=== PATIENT | female | born 1995 | race African-American/Black ===

== ENCOUNTER 2019-02-03 05:50 | Inpatient (IN) ==
[2019-02-03] MEDS ORDERED: SODIUM CHLORIDE 0.9% 1,000 ML IV STA (06:11)
[2019-02-03 06:32] LABS: Basophils # 0.1 10*3/uL (0.0-0.2); Basophils % 0.2 % (0.0-0.8); Eosinophils % 0.1 % (0.00-10.9); Hematocrit 23.9 VOL% (35.7-47.0); Hemoglobin 7.2 GM/DL (12.0-16.0); Immature Granulocytes % 1.3 %; Lymphocytes # 2.5 10*3/uL (1.4-4.0); Lymphocytes % 11.1 % (21.3-54.2); Mean Corpuscular HGB Conc 30.1 GM/DL (32-36); Mean Corpuscular Volume 84.8 FL (87-102); Mean Platelet Volume 9.1 FL (9.6-12.0); Monocytes % 7.8 % (1.7-12.7); NRBC # 0.02 10*3/uL; Neutrophils % 79.5 % (38.7-73.9); Platelet Count 492 T/CUMM (130-400); Red Blood Count 2.82 MC/CUMM (3.8-5.5); Red Cell Distribution Width 17.4 % (9.3-17.3); White Blood Count 22.8 T/CUMM (4-12)
[2019-02-03 06:53] LABS: Albumin 2.3 G/DL (3.4-5.0); Bilirubin,Total 0.9 MG/DL (0.2-1.0); Calcium 8.3 MG/DL (8.5-10.1); Osmolality,Calculated 274.5 MOS/KG (273-304); Total Protein 7.4 G/DL (6.4-8.3)
[2019-02-03 06:57] LABS: Band Neutrophils 1 % (0-10); Hypochromasia 1+; Lymphocytes 14 % (20-55); Microcytosis Slight; Platelet Estimate Adequate; Segmented Neutrophils 82 % (50-85); Total Cells Counted 100
[2019-02-03] MEDS ORDERED: ONDANSETRON 4 MG/2 ML VIAL IV STA (06:59)
[2019-02-03] MEDS ORDERED: VANCOMYCIN INJ 1,000 MG in SODIUM CHLORIDE 0.9% 250 ML IV STA (06:59)
[2019-02-03] MEDS ORDERED: HYDROmorphone 2 MG/1 ML VIAL IV STA (06:59)
[2019-02-03] MEDS ORDERED: CLINDAMYCIN INJ 600 MG in PREMIX 1 EACH IV STA (07:00)
[2019-02-03] MEDS ORDERED: GENTAMICIN INJ 140 MG in SODIUM CHLORIDE 0.9% 100 ML IV STA (07:00)
[2019-02-03] MEDS ORDERED: POTASSIUM CHLORIDE 20 MEQ TABLET PO STA (07:20)
[2019-02-03 07:24] LABS: Apearance,Urine CLEAR (Clear); Bilirubin,Urine Negative (Negative); Blood, Urine Moderate mg/dL (Negative); Glucose,Urine (UA) Negative (Negative); Ketones,Urine Negative (Negative); Nitrite,Urine Negative (Negative); Protein,Urine Negative; RBC,Urine 4 /HPF (0-4); Squamous Epithelial Cell,Urine Few /HPF (0-10); Urine Color Yellow (Yellow); Urine Specific Gravity 1.048 (1.001-1.035); WBC,Urine 1 /HPF (0-6)
[2019-02-03 07:56] LABS: % Iron Saturation 9.9 % (18-50); Ferritin 254.7 ng/ml (8-252)
[2019-02-03 08:01] LABS: INR 1.2; PT Patient Result 12.7 SECS; Partial Thromboplastin Time 32.2 SECS (0-40)
[2019-02-03 08:15] LABS: Folate 8.4 NG/ML (5.4-24.0)
[2019-02-03] MEDS ORDERED: MAGNESIUM HYDROXIDE SUSP 30 ML UDCUP PO PRN (09:12)
[2019-02-03] MEDS ORDERED: BISACODYL 10 MG SUPP RECTAL PRN (09:12)
[2019-02-03] MEDS: IBUPROFEN 800 MG TABLET PO PRN ×2 (09:18→20:45)
[2019-02-03] MEDS ORDERED: DIAZEPAM 5 MG TABLET PO ONE (09:19)
[2019-02-03] MEDS: DOCUSATE SODIUM 100 MG CAPSULE PO SCH ×2 (09:43→20:37)
[2019-02-03] MEDS: SODIUM CHLOR 0.9% KCL 40 MEQ 40 MEQ/1,000 ML BAG IV SCH ×3 (09:47→20:39)
[2019-02-03] MEDS ORDERED: fentaNYL 100 MCG/2 ML VIAL ONE (14:09)
[2019-02-03] MEDS ORDERED: MIDAZOLAM 2 MG/2 ML VIAL ONE (14:09)
[2019-02-03] MEDS ORDERED: ONDANSETRON 4 MG/2 ML VIAL ONE (14:09)
[2019-02-03] MEDS ORDERED: MIDAZOLAM 2 MG/2 ML VIAL IV ONE (14:14)
[2019-02-03] MEDS ORDERED: fentaNYL 100 MCG/2 ML VIAL IV ONE (14:14)
[2019-02-03] MEDS ORDERED: POLYETHYLENE GLYCOL POWDER 17 GM PACK PO ONE (16:18)
[2019-02-03] MEDS: VANCOMYCIN INJ 1,250 MG in SODIUM CHLORIDE 0.9% 250 ML IV SCH (17:07)
[2019-02-03] MEDS: FERROUS SULFATE 325 MG TABLET PO SCH (20:37)
[2019-02-04] MEDS: VANCOMYCIN INJ 1,250 MG in SODIUM CHLORIDE 0.9% 250 ML IV SCH ×3 (01:04→17:33)
[2019-02-04] MEDS: SODIUM CHLOR 0.9% KCL 40 MEQ 40 MEQ/1,000 ML BAG IV SCH ×3 (01:05→12:40)
[2019-02-04 06:28] LABS: Calcium 8.2 MG/DL (8.5-10.1); Osmolality,Calculated 286.6 MOS/KG (273-304)
[2019-02-04] MEDS: FERROUS SULFATE 325 MG TABLET PO SCH ×2 (08:19→21:03)
[2019-02-04] MEDS: DOCUSATE SODIUM 100 MG CAPSULE PO SCH ×2 (08:20→21:03)
[2019-02-04] MEDS: POLYETHYLENE GLYCOL POWDER 17 GM PACK PO SCH (08:20)
[2019-02-04] MEDS: oxyCODONE/ACETAMINOPHEN 5-325 MG TABLET PO PRN ×2 (08:28→19:57)
[2019-02-04] MEDS: PIPERACILLIN/TAZOBACTAM 3,375 MG in SODIUM CHLORIDE 0.9% 100 ML IV SCH ×2 (14:05→21:07)
[2019-02-04] MEDS: LACTATED RINGERS 1,000 ML IV SCH (14:05)
[2019-02-04] MEDS ORDERED: POLYETHYLENE GLYCOL POWDER 17 GM PACK PO SCH (16:05)
[2019-02-04] MEDS: CITALOPRAM 20 MG TABLET PO SCH (21:03)
[2019-02-04] MEDS: ONDANSETRON 4 MG/2 ML VIAL IV PRN (21:45)
[2019-02-05] MEDS: VANCOMYCIN INJ 1,250 MG in SODIUM CHLORIDE 0.9% 250 ML IV SCH ×3 (01:45→17:04)
[2019-02-05] MEDS: oxyCODONE/ACETAMINOPHEN 5-325 MG TABLET PO PRN ×2 (04:50→17:03)
[2019-02-05] MEDS: LACTATED RINGERS 1,000 ML IV SCH ×3 (04:52→17:05)
[2019-02-05] MEDS: PIPERACILLIN/TAZOBACTAM 3,375 MG in SODIUM CHLORIDE 0.9% 100 ML IV SCH ×3 (06:12→22:28)
[2019-02-05] MEDS: FERROUS SULFATE 325 MG TABLET PO SCH ×2 (09:35→20:27)
[2019-02-05] MEDS: POLYETHYLENE GLYCOL POWDER 17 GM PACK PO SCH (09:35)
[2019-02-05] MEDS: DOCUSATE SODIUM 100 MG CAPSULE PO SCH ×2 (09:35→20:27)
[2019-02-05] MEDS: ONDANSETRON 4 MG/2 ML VIAL IV PRN ×2 (11:56→20:33)
[2019-02-05] MEDS: CITALOPRAM 20 MG TABLET PO SCH (20:27)
[2019-02-05] MEDS ORDERED: PROMETHAZINE 25 MG/1 ML VIAL IM PRN (22:13)
[2019-02-06] MEDS: VANCOMYCIN INJ 1,250 MG in SODIUM CHLORIDE 0.9% 250 ML IV SCH (02:39)
[2019-02-06 06:08] LABS: Calcium 8.2 MG/DL (8.5-10.1); Osmolality,Calculated 286.6 MOS/KG (273-304)
[2019-02-06] MEDS: PIPERACILLIN/TAZOBACTAM 3,375 MG in SODIUM CHLORIDE 0.9% 100 ML IV SCH ×3 (06:24→22:48)
[2019-02-06 08:32] LABS: Basophils % 0.2 % (0.0-0.8); Eosinophils # 0.1 10*3/uL (0.0-0.87); Eosinophils % 0.5 % (0.00-10.9); Hematocrit 23.2 VOL% (35.7-47.0); Hemoglobin 6.9 GM/DL (12.0-16.0); Immature Granulocytes Absolute 0.18 #; Lymphocytes # 1.4 10*3/uL (1.4-4.0); Lymphocytes % 7.7 % (21.3-54.2); Mean Corpuscular HGB Conc 29.7 GM/DL (32-36); Mean Corpuscular Volume 85.9 FL (87-102); Mean Platelet Volume 9.6 FL (9.6-12.0); Monocytes % 6.8 % (1.7-12.7); Neutrophils % 83.8 % (38.7-73.9); Platelet Count 538 T/CUMM (130-400); White Blood Count 18.7 T/CUMM (4-12)
[2019-02-06] MEDS: ONDANSETRON 4 MG/2 ML VIAL IV PRN ×2 (09:41→21:08)
[2019-02-06] MEDS: DOCUSATE SODIUM 100 MG CAPSULE PO SCH ×2 (09:41→21:08)
[2019-02-06] MEDS: IBUPROFEN 800 MG TABLET PO PRN (09:42)
[2019-02-06] MEDS: POLYETHYLENE GLYCOL POWDER 17 GM PACK PO SCH (09:42)
[2019-02-06] MEDS: FERROUS SULFATE 325 MG TABLET PO SCH ×2 (09:42→21:08)
[2019-02-06] MEDS: LACTATED RINGERS 1,000 ML IV SCH (12:00)
[2019-02-06] MEDS: CITALOPRAM 20 MG TABLET PO SCH (21:08)
[2019-02-07] MEDS: ONDANSETRON 4 MG/2 ML VIAL IV PRN (03:36)
[2019-02-07 06:09] LABS: Osmolality,Calculated 289.4 MOS/KG (273-304)
[2019-02-07] MEDS: PIPERACILLIN/TAZOBACTAM 3,375 MG in SODIUM CHLORIDE 0.9% 100 ML IV SCH ×3 (06:20→22:48)
[2019-02-07] MEDS: LACTATED RINGERS 1,000 ML IV SCH ×2 (06:21→14:15)
[2019-02-07] MEDS: PROMETHAZINE INJ 25 MG in SODIUM CHLORIDE 0.9% 50 ML IV PRN ×2 (11:32→18:35)
[2019-02-07] MEDS: POLYETHYLENE GLYCOL POWDER 17 GM PACK PO SCH (12:21)
[2019-02-07] MEDS: DOCUSATE SODIUM 100 MG CAPSULE PO SCH ×2 (12:21→22:50)
[2019-02-07] MEDS: FERROUS SULFATE 325 MG TABLET PO SCH ×2 (12:21→22:50)
[2019-02-07] MEDS: CITALOPRAM 20 MG TABLET PO SCH (22:50)
[2019-02-08 05:19] LABS: Calcium 7.7 MG/DL (8.5-10.1); Osmolality,Calculated 289.6 MOS/KG (273-304)
[2019-02-08] MEDS: PIPERACILLIN/TAZOBACTAM 3,375 MG in SODIUM CHLORIDE 0.9% 100 ML IV SCH (07:42)
[2019-02-08 09:48] LABS: Basophils % 0.1 % (0.0-0.8); Eosinophils % 0.1 % (0.00-10.9); Lymphocytes # 1.5 10*3/uL (1.4-4.0); Lymphocytes % 7.4 % (21.3-54.2); Neutrophils % 85.5 % (38.7-73.9); White Blood Count 20.8 T/CUMM (4-12)
[2019-02-08] MEDS ORDERED: cefTRIAXone 1,000 MG in SYRINGE 1 EACH IV SCH (10:00)
[2019-02-08 10:14] LABS: Hematocrit 24.8 VOL% (35.7-47.0); Hemoglobin 7.3 GM/DL (12.0-16.0); Immature Granulocytes % 1.1 %; Immature Granulocytes Absolute 0.24 #; Mean Corpuscular HGB Conc 29.4 GM/DL (32-36); Mean Corpuscular Volume 85.8 FL (87-102); Mean Platelet Volume 9.2 FL (9.6-12.0); Platelet Count 517 T/CUMM (130-400); Red Blood Count 2.89 MC/CUMM (3.8-5.5); Red Cell Distribution Width 18.9 % (9.3-17.3)
[2019-02-08] MEDS: POLYETHYLENE GLYCOL POWDER 17 GM PACK PO SCH (10:18)
[2019-02-08 10:21] LABS: Band Neutrophils 1 % (0-10); Lymphocytes 12 % (20-55); Segmented Neutrophils 87 % (50-85); Total Cells Counted 100
[2019-02-08 10:22] LABS: Anisocytosis 1+; Platelet Estimate Increased; Poikilocytosis Slight
[2019-02-08 10:23] LABS: Hypochromasia Slight
[2019-02-08] MEDS: DOCUSATE SODIUM 100 MG CAPSULE PO SCH ×2 (10:24→22:29)
[2019-02-08] MEDS: SODIUM CHLOR 0.45% KCL 20 MEQ 20 MEQ/1,000 ML BAG IV SCH ×2 (13:30→22:40)
[2019-02-08] MEDS: miSOPROStol 200 MCG TABLET PO SCH ×3 (13:35→22:31)
[2019-02-08] MEDS: FERROUS SULFATE 325 MG TABLET PO SCH ×2 (13:36→22:31)
[2019-02-08 18:41] LABS: Apearance,Urine CLEAR (Clear); Bilirubin,Urine Negative (Negative); Blood, Urine Small mg/dL (Negative); Glucose,Urine (UA) Negative (Negative); Ketones,Urine Negative (Negative); Nitrite,Urine Negative (Negative); Protein,Urine Negative; RBC,Urine 2 /HPF (0-4); Squamous Epithelial Cell,Urine Occasional /HPF (0-10); Urine Color Yellow (Yellow); Urine Specific Gravity 1.014 (1.001-1.035); Urine Urobilinogen < 2.0 EU/DL (0.2-1.0); WBC,Urine 22 /HPF (0-6)
[2019-02-08 19:10] LABS: Creatinine,Urine Random 84 MG/DL; Total Protein,Urine Random 34 MG/DL; Urea Nitrogen, Urine Random 134 MG/DL
[2019-02-08] MEDS: CITALOPRAM 20 MG TABLET PO SCH (22:31)
[2019-02-09] MEDS: PROMETHAZINE INJ 25 MG in SODIUM CHLORIDE 0.9% 50 ML IV PRN ×3 (00:28→22:34)
[2019-02-09] MEDS: ACETAMINOPHEN 325 MG TABLET PO PRN ×2 (00:28→20:32)
[2019-02-09 07:54] LABS: Calcium 7.2 MG/DL (8.5-10.1); Osmolality,Calculated 289.7 MOS/KG (273-304)
[2019-02-09] MEDS: SODIUM CHLOR 0.45% KCL 20 MEQ 20 MEQ/1,000 ML BAG IV SCH ×2 (12:50→21:33)
[2019-02-09] MEDS: miSOPROStol 200 MCG TABLET PO SCH ×4 (12:50→21:08)
[2019-02-09] MEDS: DOCUSATE SODIUM 100 MG CAPSULE PO SCH ×2 (12:51→22:30)
[2019-02-09] MEDS: POLYETHYLENE GLYCOL POWDER 17 GM PACK PO SCH (12:54)
[2019-02-09] MEDS: FERROUS SULFATE 325 MG TABLET PO SCH ×2 (12:54→21:08)
[2019-02-09] MEDS: AMPICILLIN/SULBACTAM 3,000 MG in SODIUM CHLORIDE 0.9% 100 ML IV SCH ×2 (12:59→21:09)
[2019-02-09] MEDS: CITALOPRAM 20 MG TABLET PO SCH (21:08)
[2019-02-10] MEDS: SODIUM CHLOR 0.45% KCL 20 MEQ 20 MEQ/1,000 ML BAG IV SCH ×2 (03:56→15:51)
[2019-02-10 08:35] LABS: Albumin 1.8 G/DL (3.4-5.0); Calcium 8.1 MG/DL (8.5-10.1); Osmolality,Calculated 287.8 MOS/KG (273-304)
[2019-02-10] MEDS: POLYETHYLENE GLYCOL POWDER 17 GM PACK PO SCH ×2 (08:37→08:39)
[2019-02-10] MEDS: FERROUS SULFATE 325 MG TABLET PO SCH ×2 (08:37→23:31)
[2019-02-10] MEDS: miSOPROStol 200 MCG TABLET PO SCH ×4 (08:37→23:31)
[2019-02-10] MEDS: DOCUSATE SODIUM 100 MG CAPSULE PO SCH (08:37)
[2019-02-10 09:18] LABS: Basophils % 0.2 % (0.0-0.8); Eosinophils # 0.1 10*3/uL (0.0-0.87); Eosinophils % 0.8 % (0.00-10.9); Hematocrit 24.4 VOL% (35.7-47.0); Hemoglobin 7.1 GM/DL (12.0-16.0); Immature Granulocytes % 0.9 %; Immature Granulocytes Absolute 0.15 #; Lymphocytes # 1.9 10*3/uL (1.4-4.0); Mean Corpuscular HGB Conc 29.1 GM/DL (32-36); Mean Corpuscular Volume 86.5 FL (87-102); Monocytes % 5.8 % (1.7-12.7); Neutrophils % 81.3 % (38.7-73.9); Platelet Count 422 T/CUMM (130-400); Red Blood Count 2.82 MC/CUMM (3.8-5.5); Red Cell Distribution Width 18.7 % (9.3-17.3); White Blood Count 17.3 T/CUMM (4-12)
[2019-02-10] MEDS: FLUCONAZOLE INJ 200 MG in PREMIX 1 EACH IV SCH (09:46)
[2019-02-10] MEDS: AMPICILLIN/SULBACTAM 3,000 MG in SODIUM CHLORIDE 0.9% 100 ML IV SCH (11:02)
[2019-02-10] MEDS: PROMETHAZINE INJ 25 MG in SODIUM CHLORIDE 0.9% 50 ML IV PRN ×2 (11:44→23:19)
[2019-02-10] MEDS: ACETAMINOPHEN 325 MG TABLET PO PRN (23:31)
[2019-02-10] MEDS: CITALOPRAM 20 MG TABLET PO SCH (23:31)
[2019-02-11] MEDS: AMPICILLIN/SULBACTAM 3,000 MG in SODIUM CHLORIDE 0.9% 100 ML IV SCH ×2 (00:25→10:39)
[2019-02-11] MEDS: DOCUSATE SODIUM 100 MG CAPSULE PO SCH ×2 (01:16→09:18)
[2019-02-11 06:03] LABS: Basophils % 0.1 % (0.0-0.8); Eosinophils # 0.2 10*3/uL (0.0-0.87); Eosinophils % 1.2 % (0.00-10.9); Hematocrit 20.9 VOL% (35.7-47.0); Immature Granulocytes % 0.7 %; Immature Granulocytes Absolute 0.09 #; Lymphocytes # 2.2 10*3/uL (1.4-4.0); Lymphocytes % 15.7 % (21.3-54.2); Mean Corpuscular HGB Conc 29.2 GM/DL (32-36); Mean Platelet Volume 9.4 FL (9.6-12.0); Monocytes % 6.4 % (1.7-12.7); Neutrophils % 75.9 % (38.7-73.9); Platelet Count 405 T/CUMM (130-400); Red Blood Count 2.43 MC/CUMM (3.8-5.5); Red Cell Distribution Width 18.4 % (9.3-17.3); White Blood Count 13.7 T/CUMM (4-12)
[2019-02-11 06:14] LABS: Hemoglobin 6.1 GM/DL (12.0-16.0)
[2019-02-11 06:23] LABS: Albumin 1.9 G/DL (3.4-5.0); Calcium 7.9 MG/DL (8.5-10.1); Osmolality,Calculated 293.4 MOS/KG (273-304)
[2019-02-11] MEDS: SODIUM CHLOR 0.45% KCL 20 MEQ 20 MEQ/1,000 ML BAG IV SCH ×2 (07:45→19:45)
[2019-02-11] MEDS: miSOPROStol 200 MCG TABLET PO SCH ×2 (09:17→19:46)
[2019-02-11] MEDS: FERROUS SULFATE 325 MG TABLET PO SCH ×2 (09:18→22:45)
[2019-02-11] MEDS: FLUCONAZOLE INJ 200 MG in PREMIX 1 EACH IV SCH (09:19)
[2019-02-11 09:28] LABS: Hemoglobin 6.1 GM/DL (12.0-16.0)
[2019-02-11] MEDS: POLYETHYLENE GLYCOL POWDER 17 GM PACK PO SCH (10:39)
[2019-02-11] MEDS: PANTOPRAZOLE 40 MG TABLET PO SCH (10:39)
[2019-02-11] MEDS: ALBUMIN 25% 25 GM in PREMIX 1 EACH IV SCH ×2 (14:39→22:44)
[2019-02-11] MEDS: CITALOPRAM 20 MG TABLET PO SCH (22:45)
[2019-02-12] MEDS: AMPICILLIN/SULBACTAM 3,000 MG in SODIUM CHLORIDE 0.9% 100 ML IV SCH ×3 (00:05→22:17)
[2019-02-12] MEDS: DOCUSATE SODIUM 100 MG CAPSULE PO SCH ×3 (01:13→21:07)
[2019-02-12] MEDS: ALBUMIN 25% 25 GM in PREMIX 1 EACH IV SCH ×3 (05:40→21:08)
[2019-02-12 06:05] LABS: Basophils % 0.3 % (0.0-0.8); Eosinophils # 0.2 10*3/uL (0.0-0.87); Eosinophils % 1.8 % (0.00-10.9); Hematocrit 21.1 VOL% (35.7-47.0); Immature Granulocytes % 0.7 %; Immature Granulocytes Absolute 0.08 #; Lymphocytes # 1.9 10*3/uL (1.4-4.0); Mean Corpuscular HGB Conc 29.4 GM/DL (32-36); Mean Corpuscular Volume 85.1 FL (87-102); Mean Platelet Volume 9.4 FL (9.6-12.0); Monocytes % 6.8 % (1.7-12.7); Neutrophils % 73.4 % (38.7-73.9); Platelet Count 462 T/CUMM (130-400); Red Blood Count 2.48 MC/CUMM (3.8-5.5); Red Cell Distribution Width 18.3 % (9.3-17.3); White Blood Count 11.3 T/CUMM (4-12)
[2019-02-12 06:12] LABS: Hemoglobin 6.2 GM/DL (12.0-16.0)
[2019-02-12 06:24] LABS: Hypochromasia 2+; Ovalocytes Slight; Platelet Estimate Adequate
[2019-02-12 06:43] LABS: Albumin 2.5 G/DL (3.4-5.0); Osmolality,Calculated 292.4 MOS/KG (273-304)
[2019-02-12] MEDS: PANTOPRAZOLE 40 MG TABLET PO SCH (09:11)
[2019-02-12] MEDS: FERROUS SULFATE 325 MG TABLET PO SCH ×2 (09:11→21:07)
[2019-02-12] MEDS: FLUCONAZOLE INJ 200 MG in PREMIX 1 EACH IV SCH (09:11)
[2019-02-12] MEDS: POLYETHYLENE GLYCOL POWDER 17 GM PACK PO SCH (09:11)
[2019-02-12] MEDS: IRON SUCROSE 200 MG in SODIUM CHLORIDE 0.9% 100 ML IV SCH (11:20)
[2019-02-12] MEDS: CITALOPRAM 20 MG TABLET PO SCH (21:07)
[2019-02-13 05:55] LABS: Basophils % 0.2 % (0.0-0.8); Eosinophils # 0.3 10*3/uL (0.0-0.87); Eosinophils % 2.5 % (0.00-10.9); Hematocrit 20.2 VOL% (35.7-47.0); Immature Granulocytes % 0.7 %; Immature Granulocytes Absolute 0.07 #; Mean Corpuscular HGB Conc 29.2 GM/DL (32-36); Mean Corpuscular Volume 84.9 FL (87-102); Mean Platelet Volume 9.7 FL (9.6-12.0); Monocytes % 7.4 % (1.7-12.7); Neutrophils % 70.2 % (38.7-73.9); Platelet Count 485 T/CUMM (130-400); Red Blood Count 2.38 MC/CUMM (3.8-5.5); Red Cell Distribution Width 18.6 % (9.3-17.3); White Blood Count 10.7 T/CUMM (4-12)
[2019-02-13] MEDS: ALBUMIN 25% 25 GM in PREMIX 1 EACH IV SCH (05:59)
[2019-02-13 06:04] LABS: Hemoglobin 5.9 GM/DL (12.0-16.0)
[2019-02-13 06:20] LABS: Albumin 2.9 G/DL (3.4-5.0); Calcium 8.2 MG/DL (8.5-10.1); Osmolality,Calculated 289.6 MOS/KG (273-304)
[2019-02-13] MEDS: PANTOPRAZOLE 40 MG TABLET PO SCH (09:30)
[2019-02-13] MEDS: DOCUSATE SODIUM 100 MG CAPSULE PO SCH ×2 (09:30→21:36)
[2019-02-13] MEDS: FERROUS SULFATE 325 MG TABLET PO SCH ×2 (09:31→21:36)
[2019-02-13] MEDS: IRON SUCROSE 200 MG in SODIUM CHLORIDE 0.9% 100 ML IV SCH (09:31)
[2019-02-13] MEDS: POLYETHYLENE GLYCOL POWDER 17 GM PACK PO SCH (09:33)
[2019-02-13] MEDS: FLUCONAZOLE INJ 200 MG in PREMIX 1 EACH IV SCH (11:07)
[2019-02-13] MEDS: AMPICILLIN/SULBACTAM 3,000 MG in SODIUM CHLORIDE 0.9% 100 ML IV SCH (12:04)
[2019-02-13] MEDS ORDERED: SODIUM CHLORIDE 0.9% 1,000 ML IV PRN (12:54)
[2019-02-13] MEDS: CITALOPRAM 20 MG TABLET PO SCH (21:36)
[2019-02-14] MEDS: AMPICILLIN/SULBACTAM 3,000 MG in SODIUM CHLORIDE 0.9% 100 ML IV SCH ×2 (01:11→13:27)
[2019-02-14 06:12] LABS: Basophils % 0.3 % (0.0-0.8); Eosinophils # 0.4 10*3/uL (0.0-0.87); Eosinophils % 2.6 % (0.00-10.9); Hematocrit 29.6 VOL% (35.7-47.0); Hemoglobin 9.2 GM/DL (12.0-16.0); Immature Granulocytes % 0.7 %; Immature Granulocytes Absolute 0.09 #; Lymphocytes # 2.1 10*3/uL (1.4-4.0); Lymphocytes % 15.7 % (21.3-54.2); Mean Corpuscular HGB Conc 31.1 GM/DL (32-36); Mean Corpuscular Volume 84.3 FL (87-102); Mean Platelet Volume 9.5 FL (9.6-12.0); Monocytes % 7.6 % (1.7-12.7); Neutrophils % 73.1 % (38.7-73.9); Platelet Count 448 T/CUMM (130-400); Red Blood Count 3.51 MC/CUMM (3.8-5.5); Red Cell Distribution Width 16.9 % (9.3-17.3); White Blood Count 13.3 T/CUMM (4-12)
[2019-02-14 06:41] LABS: Albumin 3.1 G/DL (3.4-5.0); Calcium 9.2 MG/DL (8.5-10.1); Osmolality,Calculated 294.1 MOS/KG (273-304)
[2019-02-14] MEDS: PANTOPRAZOLE 40 MG TABLET PO SCH (08:08)
[2019-02-14] MEDS: FERROUS SULFATE 325 MG TABLET PO SCH ×2 (08:08→21:15)
[2019-02-14] MEDS: POLYETHYLENE GLYCOL POWDER 17 GM PACK PO SCH (08:08)
[2019-02-14] MEDS: DOCUSATE SODIUM 100 MG CAPSULE PO SCH ×2 (08:08→21:15)
[2019-02-14] MEDS: IRON SUCROSE 200 MG in SODIUM CHLORIDE 0.9% 100 ML IV SCH (09:36)
[2019-02-14] MEDS: FLUCONAZOLE INJ 200 MG in PREMIX 1 EACH IV SCH (10:15)
[2019-02-14] MEDS: ONDANSETRON 4 MG/2 ML VIAL IV PRN (10:16)
[2019-02-14] MEDS: CITALOPRAM 20 MG TABLET PO SCH (21:15)
[2019-02-15] MEDS: AMPICILLIN/SULBACTAM 3,000 MG in SODIUM CHLORIDE 0.9% 100 ML IV SCH ×2 (01:59→13:17)
[2019-02-15] MEDS: PANTOPRAZOLE 40 MG TABLET PO SCH (09:09)
[2019-02-15] MEDS: POLYETHYLENE GLYCOL POWDER 17 GM PACK PO SCH (09:10)
[2019-02-15 09:35] LABS: Albumin 3.3 G/DL (3.4-5.0); Calcium 9.1 MG/DL (8.5-10.1); Osmolality,Calculated 293.3 MOS/KG (273-304)
[2019-02-15] MEDS: IRON SUCROSE 200 MG in SODIUM CHLORIDE 0.9% 100 ML IV SCH (10:42)
[2019-02-15] MEDS: DOCUSATE SODIUM 100 MG CAPSULE PO SCH ×2 (10:43→20:24)
[2019-02-15] MEDS ORDERED: POTASSIUM CHLORIDE 20 MEQ TABLET PO ONE (11:55)
[2019-02-15] MEDS: FLUCONAZOLE INJ 200 MG in PREMIX 1 EACH IV SCH (12:11)
[2019-02-15 12:33] LABS: Basophils % 0.3 % (0.0-0.8); Eosinophils # 0.5 10*3/uL (0.0-0.87); Eosinophils % 3.5 % (0.00-10.9); Hematocrit 30.9 VOL% (35.7-47.0); Hemoglobin 9.6 GM/DL (12.0-16.0); Immature Granulocytes % 0.5 %; Immature Granulocytes Absolute 0.07 #; Lymphocytes # 1.9 10*3/uL (1.4-4.0); Lymphocytes % 13.4 % (21.3-54.2); Mean Corpuscular HGB Conc 31.1 GM/DL (32-36); Mean Corpuscular Volume 85.1 FL (87-102); Mean Platelet Volume 9.7 FL (9.6-12.0); Monocytes % 7.2 % (1.7-12.7); Neutrophils % 75.1 % (38.7-73.9); Platelet Count 483 T/CUMM (130-400); Red Blood Count 3.63 MC/CUMM (3.8-5.5); Red Cell Distribution Width 17.6 % (9.3-17.3); White Blood Count 14.2 T/CUMM (4-12)
[2019-02-15] MEDS: AMOXICILLIN 500 MG CAPSULE PO SCH (20:24)
[2019-02-15] MEDS: CITALOPRAM 20 MG TABLET PO SCH (20:24)
[2019-02-16 06:18] LABS: Basophils % 0.2 % (0.0-0.8); Eosinophils # 0.5 10*3/uL (0.0-0.87); Eosinophils % 3.9 % (0.00-10.9); Hematocrit 31.1 VOL% (35.7-47.0); Hemoglobin 9.4 GM/DL (12.0-16.0); Immature Granulocytes % 0.6 %; Immature Granulocytes Absolute 0.07 #; Lymphocytes # 2.1 10*3/uL (1.4-4.0); Lymphocytes % 17.1 % (21.3-54.2); Mean Corpuscular HGB Conc 30.2 GM/DL (32-36); Mean Corpuscular Volume 86.4 FL (87-102); Mean Platelet Volume 9.4 FL (9.6-12.0); Monocytes % 7.8 % (1.7-12.7); Neutrophils % 70.4 % (38.7-73.9); Platelet Count 463 T/CUMM (130-400); Red Cell Distribution Width 17.7 % (9.3-17.3); White Blood Count 12.4 T/CUMM (4-12)
[2019-02-16 06:44] LABS: Albumin 3.2 G/DL (3.4-5.0); Calcium 9.1 MG/DL (8.5-10.1); Osmolality,Calculated 287.6 MOS/KG (273-304)
[2019-02-16 07:41] VITALS: BP 115/64
[2019-02-16] MEDS: POLYETHYLENE GLYCOL POWDER 17 GM PACK PO SCH (08:18)
[2019-02-16] MEDS: DOCUSATE SODIUM 100 MG CAPSULE PO SCH (08:18)
[2019-02-16] MEDS: PANTOPRAZOLE 40 MG TABLET PO SCH (08:20)
[2019-02-16] MEDS: IRON SUCROSE 200 MG in SODIUM CHLORIDE 0.9% 100 ML IV SCH (08:35)
[2019-02-16] MEDS: AMOXICILLIN 500 MG CAPSULE PO SCH (08:36)
[2019-02-16] MEDS ORDERED: FLUCONAZOLE 100 MG TABLET PO SCH (09:00)
[2019-02-16] MEDS ORDERED: POTASSIUM CHLORIDE 20 MEQ TABLET PO ONE (13:00)
== END 2019-02-16 13:50 | disposition home or self-care (01) | DRG 776 ==
LOC: N.ED 05:50 → N.EDINP 07:47 → N.5E 12:20
PROVIDERS: ADMIT Obstetrics & Gynecology; ATTEND Obstetrics & Gynecology